=== PATIENT | male | born 1950 | race Caucasian/White ===

== ENCOUNTER 2024-02-09 10:17 | Outpatient (RCR) | payer MEDICARE, OTHER, SELFPAY | END 2024-02-09 23:59 | disposition home or self-care (01) | LOC: RST 10:17 | PROVIDERS: ATTENDING PHYSICIAN Psychiatry & Neurology Neurology | DX: I69.398 Other sequelae of cerebral infarction (principal); R47.1 Dysarthria and anarthria | CPT/HCPCS: 92507; 92523 ==

== ENCOUNTER 2024-03-08 10:11 | Outpatient (RCR) | payer MEDICARE, OTHER, SELFPAY | END 2024-03-15 11:33 | disposition home or self-care (01) | LOC: RST 10:11 | PROVIDERS: ATTENDING PHYSICIAN Psychiatry & Neurology Neurology | DX: I69.322 Dysarthria following cerebral infarction (principal); I69.398 Other sequelae of cerebral infarction (principal); R47.1 Dysarthria and anarthria | CPT/HCPCS: 92507 ==

== ENCOUNTER → 2024-03-31 13:04 | Outpatient (REF) | payer MEDICARE, OTHER, SELFPAY | LOC: HWRAD 13:04 | PROVIDERS: ATTENDING PHYSICIAN Registered Nurse; REFERRING PHYSICIAN Family Medicine | DX: N13.9 Obstructive and reflux uropathy, unspecified (principal) | CPT/HCPCS: 76770 ==

== ENCOUNTER 2024-07-10 09:29 | Outpatient (RCR) | payer MEDICARE, OTHER, SELFPAY | END 2024-07-10 23:59 | disposition home or self-care (01) | LOC: RST 09:29 | PROVIDERS: ATTENDING PHYSICIAN Psychiatry & Neurology Neurology | DX: I69.328 Other speech and language deficits following cerebral infarction (principal); I69.322 Dysarthria following cerebral infarction; I69.351 Hemiplegia and hemiparesis following cerebral infarction affecting right dominant side; I69.320 Aphasia following cerebral infarction; I69.398 Other sequelae of cerebral infarction | CPT/HCPCS: 92507; 92523 ==

== ENCOUNTER 2024-08-07 15:10 | Outpatient (RCR) | payer MEDICARE, OTHER, SELFPAY | END 2024-08-08 05:52 | disposition home or self-care (01) | LOC: RST 15:10 | PROVIDERS: ATTENDING PHYSICIAN Psychiatry & Neurology Neurology | DX: I69.328 Other speech and language deficits following cerebral infarction (principal); I69.322 Dysarthria following cerebral infarction; I69.351 Hemiplegia and hemiparesis following cerebral infarction affecting right dominant side; I69.320 Aphasia following cerebral infarction; I69.398 Other sequelae of cerebral infarction; R47.1 Dysarthria and anarthria | CPT/HCPCS: 92507 ==

== ENCOUNTER 2025-01-11 15:45 | Outpatient (RCR) | payer MEDICARE, OTHER, SELFPAY | END 2025-01-11 23:59 | disposition home or self-care (01) | LOC: RST 15:45 | PROVIDERS: ATTENDING PHYSICIAN Psychiatry & Neurology Neurology; PRIMARYCARE PHYSICIAN Family Medicine | DX: I69.398 Other sequelae of cerebral infarction (principal); I69.328 Other speech and language deficits following cerebral infarction; Z73.6 Limitation of activities due to disability; I69.320 Aphasia following cerebral infarction | CPT/HCPCS: 92507; 92523 ==

== ENCOUNTER 2025-02-08 16:22 | Outpatient (RCR) | payer MEDICARE, OTHER, SELFPAY | END 2025-02-08 23:59 | disposition home or self-care (01) | LOC: RST 16:22 | PROVIDERS: ATTENDING PHYSICIAN Psychiatry & Neurology Neurology; PRIMARYCARE PHYSICIAN Family Medicine | DX: I69.398 Other sequelae of cerebral infarction (principal); I69.328 Other speech and language deficits following cerebral infarction; Z73.6 Limitation of activities due to disability; I69.320 Aphasia following cerebral infarction | CPT/HCPCS: 92507 ==

== ENCOUNTER 2025-03-06 15:13 | Outpatient (RCR) | payer MEDICARE, OTHER, SELFPAY | END 2025-03-06 23:59 | disposition home or self-care (01) | LOC: RST 15:13 | PROVIDERS: ATTENDING PHYSICIAN Psychiatry & Neurology Neurology; PRIMARYCARE PHYSICIAN Family Medicine | DX: I69.398 Other sequelae of cerebral infarction (principal); I69.328 Other speech and language deficits following cerebral infarction; Z73.6 Limitation of activities due to disability; I69.320 Aphasia following cerebral infarction | CPT/HCPCS: 92507 ==

== ENCOUNTER 2025-04-03 06:54 | Day surgery (SDC) | payer MEDICARE, OTHER, SELFPAY ==
[2025-03-30 13:08] VITALS: BMI 24.1
== END 2025-04-03 10:10 | disposition home or self-care (01) ==
LOC: CATH 06:54
PROVIDERS: ATTENDING PHYSICIAN Internal Medicine Cardiovascular Disease; FAMILY PHYSICIAN Family Medicine; OTHER PHYSICIAN Student in an Organized Health Care Education/Training Program
DX: I48.19 Other persistent atrial fibrillation (principal); E78.5 Hyperlipidemia, unspecified; Z79.01 Long term (current) use of anticoagulants; Z87.891 Personal history of nicotine dependence; I10 Essential (primary) hypertension; I25.10 Atherosclerotic heart disease of native coronary artery without angina pectoris; I25.2 Old myocardial infarction; I34.1 Nonrheumatic mitral (valve) prolapse; K58.9 Irritable bowel syndrome, unspecified; I45.10 Unspecified right bundle-branch block; Z86.73 Personal history of transient ischemic attack (TIA), and cerebral infarction without residual deficits; Z90.89 Acquired absence of other organs; Z95.5 Presence of coronary angioplasty implant and graft; Z86.0100 Personal history of colon polyps, unspecified; I44.0 Atrioventricular block, first degree; G45.4 Transient global amnesia; N40.1 Benign prostatic hyperplasia with lower urinary tract symptoms; N32.81 Overactive bladder
CPT/HCPCS: 93312; 93320; 93325; 92960; 93005

== ENCOUNTER 2025-04-12 15:14 | Outpatient (RCR) | payer MEDICARE, OTHER, SELFPAY | END 2025-04-12 23:59 | disposition home or self-care (01) | LOC: RST 15:14 | PROVIDERS: ATTENDING PHYSICIAN Psychiatry & Neurology Neurology; PRIMARYCARE PHYSICIAN Family Medicine | DX: I69.398 Other sequelae of cerebral infarction (principal); I69.328 Other speech and language deficits following cerebral infarction; Z73.6 Limitation of activities due to disability; I69.320 Aphasia following cerebral infarction; I69.351 Hemiplegia and hemiparesis following cerebral infarction affecting right dominant side | CPT/HCPCS: 92507 ==

== ENCOUNTER 2025-05-08 14:30 | Outpatient (RCR) | payer MEDICARE, OTHER, SELFPAY | END 2025-05-08 23:59 | disposition home or self-care (01) | LOC: RST 14:30 | PROVIDERS: ATTENDING PHYSICIAN Psychiatry & Neurology Neurology; PRIMARYCARE PHYSICIAN Family Medicine | DX: I69.398 Other sequelae of cerebral infarction (principal); I69.328 Other speech and language deficits following cerebral infarction; Z73.6 Limitation of activities due to disability; I69.320 Aphasia following cerebral infarction; I69.351 Hemiplegia and hemiparesis following cerebral infarction affecting right dominant side | CPT/HCPCS: 92507 ==

== ENCOUNTER 2025-05-29 10:20 | Outpatient (RCR) | payer MEDICARE, OTHER, SELFPAY | END 2025-05-29 23:59 | disposition home or self-care (01) | LOC: RST 10:20 | PROVIDERS: ATTENDING PHYSICIAN Psychiatry & Neurology Neurology; PRIMARYCARE PHYSICIAN Family Medicine | DX: I69.398 Other sequelae of cerebral infarction (principal); I69.328 Other speech and language deficits following cerebral infarction; Z73.6 Limitation of activities due to disability; I69.320 Aphasia following cerebral infarction; I69.351 Hemiplegia and hemiparesis following cerebral infarction affecting right dominant side | CPT/HCPCS: 92507 ==

== ENCOUNTER 2025-07-03 11:20 | Outpatient (RCR) | payer MEDICARE, OTHER, SELFPAY | END 2025-07-03 23:59 | disposition home or self-care (01) | LOC: RST 11:20 | PROVIDERS: ATTENDING PHYSICIAN Psychiatry & Neurology Neurology; PRIMARYCARE PHYSICIAN Family Medicine | DX: I69.398 Other sequelae of cerebral infarction (principal); I69.328 Other speech and language deficits following cerebral infarction; Z73.6 Limitation of activities due to disability; I69.320 Aphasia following cerebral infarction; I69.351 Hemiplegia and hemiparesis following cerebral infarction affecting right dominant side | CPT/HCPCS: 92507 ==

== ENCOUNTER 2025-07-31 11:17 | Outpatient (RCR) | payer MEDICARE, OTHER, SELFPAY | END 2025-08-01 06:27 | disposition home or self-care (01) | LOC: RST 11:17 | PROVIDERS: ATTENDING PHYSICIAN Psychiatry & Neurology Neurology; PRIMARYCARE PHYSICIAN Family Medicine | DX: I69.398 Other sequelae of cerebral infarction (principal); I69.328 Other speech and language deficits following cerebral infarction; Z73.6 Limitation of activities due to disability; I69.320 Aphasia following cerebral infarction; I69.351 Hemiplegia and hemiparesis following cerebral infarction affecting right dominant side | CPT/HCPCS: 92507 ==